=== PATIENT | female | born 1975 | race Caucasian/White ===

== ENCOUNTER → 2016-06-02 | Outpatient (REF) ==
[2016-06-02 14:18] LABS: TOTAL IRON BINDING CAPACITY 402 ug/dL (265-497)
[2016-06-02 14:45] LABS: FERRITIN 4 ng/mL (6-137)
== END ==
LOC: ZLAB.WCH 11:12
PROVIDERS: Nurse Practitioner Family
DX: Z01.89 Encounter for other specified special examinations (principal)

== ENCOUNTER → 2018-04-02 | Outpatient (REF) ==
[2018-04-02 09:12] LABS: IRON,SERUM 14 ug/dL (35-150)
[2018-04-02 09:21] LABS: TOTAL IRON BINDING CAPACITY 442 ug/dL (265-497)
[2018-04-02 09:47] LABS: FERRITIN 5 ng/mL (6-137)
== END ==
LOC: ZLAB.WCH 08:57
PROVIDERS: Family Medicine
DX: Z01.89 Encounter for other specified special examinations (principal)

== ENCOUNTER 2018-05-09 05:37 | Day surgery (SDC) | payer OTHER ==
[2018-05-09] VITALS (11 sets, daily range): BP systolic 103–134; BP diastolic 64–73; PULSE 58–83; TEMP 97.4–98.5
[~2018-05-09] VITALS: Ht 172.7 cm; Wt 66.8 kg
[2018-05-09] MEDS ORDERED: XANAX 0.5MG0.5 MG PO (06:32)
[2018-05-09] MEDS ORDERED: 00186-0370-20 IH (06:34)
[2018-05-09] MEDS ORDERED: VENTOLIN0.09 MG IH (06:35)
[2018-05-09] MEDS ORDERED: PRENATAL FORMU1 EAC3 PO (06:37)
[2018-05-09] MEDS ORDERED: COLACE 100100 MG/CAP PO (06:37)
[2018-05-09] MEDS ORDERED: VITAMIN C500 MG PO (06:38)
[2018-05-09] MEDS ORDERED: FERROUS SU325 MG/TAB PO (06:39)
[2018-05-09] MEDS ORDERED: MIRALAX PA17 GM/Dose PO (06:40)
[2018-05-09] MEDS ORDERED: MAXALT10 MG PO (06:41)
[2018-05-10] MEDS ORDERED: PERCOCET 325 MG1 TA2 PO (07:22)
[2018-05-10] MEDS ORDERED: MOTRIN 800800 MG/TAB PO (07:22)
[2018-05-10 07:30] VITALS: BP 121/64; PULSE 72; TEMP 98.4
== END 2018-05-10 12:00 | disposition home or self-care (01) ==
LOC: SDCO 05:37 → OB 05:37 → SDCO 07:30 → OB 10:00 → SDCO 05-10 12:00
DX: D25.9 Leiomyoma of uterus, unspecified (principal); N92.0 Excessive and frequent menstruation with regular cycle; N94.6 Dysmenorrhea, unspecified; N39.3 Stress incontinence (female) (male); N81.4 Uterovaginal prolapse, unspecified; J45.909 Unspecified asthma, uncomplicated; F41.9 Anxiety disorder, unspecified; D64.9 Anemia, unspecified; Z88.5 Allergy status to narcotic agent; Z88.8 Allergy status to other drugs, medicaments and biological substances; Z82.49 Family history of ischemic heart disease and other diseases of the circulatory system; Z80.52 Family history of malignant neoplasm of bladder; Z83.3 Family history of diabetes mellitus; Z80.42 Family history of malignant neoplasm of prostate
CPT/HCPCS: A4314; C1771; J0690; J1100; J1200; J1885; J2175; J2405; J2550; J2704; J3010; J7120

== ENCOUNTER 2024-04-04 06:39 | Inpatient (IN) | payer OTHER ==
[2024-04-04] VITALS (12 sets, daily range): BP systolic 113–133; BP diastolic 62–85; PULSE 71–106; TEMP 98–98.1
[~2024-04-04] VITALS: Ht 170.2 cm; Wt 83.8 kg
[~2024-04-04 06:39] MED LIST: 00186-0370-20 IH; COLACE 100100 MG/CAP PO; FERROUS SU325 MG/TAB PO; MAXALT10 MG PO; MIRALAX PA17 GM/Dose PO; MOTRIN 800800 MG/TAB PO; PERCOCET 325 MG1 TA2 PO; PRENATAL FORMU1 EAC3 PO; VENTOLIN0.09 MG IH; VITAMIN C500 MG PO; XANAX 0.5MG0.5 MG PO
[2024-04-04] MEDS ORDERED: BUSPAR5 MG PO (10:21)
[2024-04-04] MEDS ORDERED: ATARAX 25MG25 MG/TAB PO (10:22)
[2024-04-04] MEDS ORDERED: Docusate Sodium 100 MG CAP PO PRN (10:30)
[2024-04-04] MEDS ORDERED: Acetaminophen 325 MG TAB PO PRN (10:30)
[2024-04-04] MEDS ORDERED: Polyethylene Glycol 3350 17 GM PDS PO PRN (10:30)
[2024-04-04] MEDS ORDERED: hydrOXYzine HCl 25 MG TAB PO PRN (10:45)
--- NOTE | 2024-04-04 11:55 | NUR ---
SANKET met with patient, her daughter and daughter's boyfriend in room to complete initial assessment for discharge planning. Patient verified that she lives in [place] with her fiance. Patient lists her mother Maryann Ruiz ([phone]) as her emergency contact. Patient sees Alia Mack APRN as her PCP and uses [facility] without difficulty. Patient has [id number] insurance. Patient denies having a DPOA and states her only DME is a nebulizer. Patient plans to return home at discharge. Discharge plan: Home
[2024-04-04] MEDS ORDERED: Levalbuterol Neb Soln 1.25 MG/3 ML UD IH SCH (14:00)
[2024-04-04] MEDS ORDERED: Heparin 5,000 UNITS/ML 1 ML VIAL SQ SCH (16:00)
--- NOTE | 2024-04-04 17:54 | NUR ---
PT ARRIVED VIA EMS FROM [facility] AT 0910. UPON ARRIVAL PT WAS NOTED TO BE IN SINUS RHYTHM, EKG OBTAINED TO CONFIRM, DR LEIGH AND DR Ioana MOSER NOTIFIED. CARDIZEM DRIP DISCONTINUED AT [address] LEIGH. ECHO DONE AT 1315. LOOP RECORDER PLACED AT 1430, CONCRETE FOREMAN NURSE ASSISTED AT BEDSIDE, PT TOLERATED WELL. DRESSING TO IMPLANTATION SITE CDI. PT REMAINS IN NSR AT TIME OF THIS NOTE, PT DENIES NEEDS, CALL LIGHT IN REACH.
[2024-04-04] MEDS ORDERED: Budesonide Neb Susp 0.5 MG/2 ML AMP IH SCH (19:00)
--- NOTE | 2024-04-04 19:40 | NUR ---
Received report from SIL Mcrae. Pt alert and lying in bed with bed in low position and the call light within reach. Vitals are stable at this time. No IVF's or drips are running at this time. Pt does not look in distress at this time. Will continue with pt care.
--- NOTE | 2024-04-04 19:45 | NUR ---
Pt's loop recorder site looks clean, dry and intact with no hematomas present.
[2024-04-04] MEDS ORDERED: Ondansetron 4 MG/2 ML VIAL IV PRN (20:00)
[2024-04-04] MEDS ORDERED: Montelukast 10 MG TAB PO SCH (21:00)
[2024-04-04] MEDS ORDERED: Cephalexin 500 MG CAP PO SCH (21:00)
[2024-04-05] VITALS (8 sets, daily range): BP systolic 104–124; BP diastolic 65–80; PULSE 57–98; TEMP 97.3–98.5
[2024-04-05 05:10] LABS: BASO % 0.2 % (0.0-2.0); EOS % 0.1 % (0.0-4.0); GRAN # 8.5 K/mm3 (1.4-6.5); GRAN % 73.6 % (42.2-75.2); HEMATOCRIT 38.4 % (37.0-47.0); HEMOGLOBIN 13.4 g/dl (12.5-16.0); LYMPH % 17.4 % (20.0-51.0); MEAN CELL VOLUME 87 fl (80.0-100.0); MEAN CORPUSCULAR HEMOGLOBIN 30 pg (27-31); MEAN CORPUSCULAR HGB CONC 35 g/dl (33.0-37.0); MEAN PLATELET VOLUME 9.6 fl (7.4-10.4); MONO % 8.4 % (1.7-9.3); PLATELET COUNT 297 K/mm3 (130-400); RED BLOOD COUNT 4.43 M/mm3 (4.10-5.30); REDCELL DISTRIBUTION WIDTH-CV 12.6 % (11.5-14.5)
[2024-04-05 05:34] LABS: CALCIUM 9.5 mg/dL (8.4-10.2); CREATININE, serum 0.73 mg/dL (0.57-1.11); POTASSIUM 3.8 mEq/L (3.5-4.5)
--- NOTE | 2024-04-05 06:45 | NUR ---
Pt had an uneventful night. No drips or IVF's running at this time. Vitals are stable at this time. Pt is resting in bed with the call light within reach. Will give report to day shift nurse.
--- NOTE | 2024-04-05 08:30 | NUR ---
Awake and resting in bed; reports some soreness around loop recorder insertion site and a headache. Otherwise denies any complaints or concerns at this time. Assisted up to the bathroom and ambulates independently without any issues. Call light left within reach.
[2024-04-05] MEDS ORDERED: Influenza Virus Vaccine, Trivalent '24-25 0.5 ML SYRINGE IM SCH (09:00)
--- NOTE | 2024-04-05 09:47 | NUR ---
Notified by x ray service technician that patient's heart rate was suddenly very tachy. HR running 170's-180' on the monitor. Patient awake and alert but tearfull at this time. Stated that she could feel that her heart rate was elevatd but denied any other associated symptoms. BP and 02 readings stable. Had patient attempt to perform a valsalva manouver, howerver this was inneffective. Cardiology notified and was prepared to adminiser adenosine when patient re-converted to Sinus rhythm. Will switch to oral sotalol at this time. .
--- NOTE | 2024-04-05 14:45 | NUR ---
Patient transfered to medical floor via wheelchair. Alert and oriented and in no distress. Met receiving RN in room upon arrival.
--- NOTE | 2024-04-05 14:54 | NUR ---
PATIENT ARRIVED AWAKE AND ALERT FROM ICU. PATIENT LOOP RECORDER SITE CLEAN DRY AND INTACT. PATIENT DENIES ANY PAIN OR COMPLAINTS AT THIS TIME. PATIENT REQUESTING TO SHOWER. PATIENT IV COVERED. SHE WAS GIVEN INSTRUCTIONS FOR SHOWERING POST LOOP RECORDER INSERTION (PLACED YESTERDAY). PATPIENT SET UP FOR SHOWER.
[2024-04-05] MEDS ORDERED: diphenhydrAMINE 25 MG CAP PO PRN (20:30)
[2024-04-06] VITALS (12 sets, daily range): BP systolic 106–126; BP diastolic 70–78; PULSE 54–68; TEMP 98–98.9
--- NOTE | 2024-04-06 06:20 | NUR ---
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 pt COMPLAINED OF ITCHING AROUND HER SURGICAL SITE. PAPER TAPE REMOVED. AREA AROUND GAUZE (1/4IN OUT) CLEANED WITH ALCOHOL PAD TO REMOVE SOME OF THE PREP. HOSPITALIST CALLED. BENADRYL ORDERED AND GIVEN. pt FELT THE BENADRYL WAS MOSTLY EFFECTIVE. pt DENIED GENERAL PAIN, CHEST PAIN, PALPITATIONS, SOB, N,V,D OR DIZZINESS. CALL LIGHT WITHIN REACH.
[2024-04-06 06:26] LABS: BASO # 0.1 K/mm3 (0.0-0.2); BASO % 0.5 % (0.0-2.0); EOS # 0.1 K/mm3 (0.0-0.7); GRAN # 4.6 K/mm3 (1.4-6.5); GRAN % 50.4 % (42.2-75.2); HEMATOCRIT 40.1 % (37.0-47.0); HEMOGLOBIN 14.1 g/dl (12.5-16.0); LYMPH # 3.7 K/mm3 (1.2-3.4); MEAN CELL VOLUME 88 fl (80.0-100.0); MEAN CORPUSCULAR HEMOGLOBIN 31 pg (27-31); MEAN CORPUSCULAR HGB CONC 35 g/dl (33.0-37.0); MEAN PLATELET VOLUME 9.6 fl (7.4-10.4); MONO # 0.7 K/mm3 (0.1-0.6); MONO % 7.8 % (1.7-9.3); PLATELET COUNT 286 K/mm3 (130-400); RED BLOOD COUNT 4.57 M/mm3 (4.10-5.30); REDCELL DISTRIBUTION WIDTH-CV 12.6 % (11.5-14.5)
[2024-04-06 06:36] LABS: CALCIUM 8.8 mg/dL (8.4-10.2); CREATININE, serum 0.75 mg/dL (0.57-1.11)
[2024-04-06] MEDS ORDERED: busPIRone 5 MG TAB PO SCH (09:46)
--- NOTE | 2024-04-06 10:59 | NUR ---
dining service worker met with patient and provided [employer] packet as patient is having concerns that she has been off work for an extended period of time.
--- NOTE | 2024-04-06 12:10 | NUR ---
Data: Spiritual care visit offered during Plan Examiner rounds. Patient declined. She was in recliner reading a book. Assessment: None at this time. Plan of Care: Chaplains will remain available as needed/requested while Patient is admitted to this hospital.
--- NOTE | 2024-04-06 17:30 | NUR ---
PATIENT SHOWERED INDEPENDENTLY. NO ACUTE EVENTS DURING THIS RN SHIFT. PATIENT NOW AWAKE AND ALERT SITTING UP IN BED. CALL LIGHT WTIHIN REACH, LOOP RECORDER SITE DAVID WITH STERI STRIPS INTACT, FOUR H CLUB AGENT ON. PTIENT DENEIS ANY NEEDS OR COMPLAINTS AT THIS TIME.
[2024-04-07 00:05] VITALS: BP_SYST 125
[2024-04-07 03:29] VITALS: BP 116/69; PULSE 80; TEMP 98.3
[2024-04-07 04:00] VITALS: BP_SYST 116
--- NOTE | 2024-04-07 05:15 | NUR ---
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 pt COMPLAINED OF FEELING "FLUTTERS" IN HER CHEST. I CALLED THE TELE SITTER TO SEE HE COULD LOOK BACK AT HER EKG STRIP TO SEE IF HE COULD SEE ANYTHING OUT OF THE ORGINARY. TELE SITTER STATED WHEN HE LOOKED BACK, THE EKG SHOWED A COUPLE OF UNIFOCAL PVC'S BACK TO BACK. HOSPITALIST CALLED. NO NEW ORDERS GIVEN, BUT TO CONTINUE TO MONITOR. TELE ALSO CALLED ABOUT pt's HR DROPPING INTO THE HIGH 30'S FOR AROUND 30 SEC. pt ASYMPTOMATIC (JUST SLEEPING). HOSPITALIST CALLED. WILL CONTINUE TO MONITOR pt. pt ALSO COMPLAINED OF ANXIETY. pt GIVEN PRN ATARX FOR HER ANXIETY. pt FELT THE MEDICATION WAS EFFECTIVE. pt DENIED CHEST PAIN, PALPITIONS, SOB, N,V,D OR DIZZINESS. pt EXPESSED NO ADDITIONAL NEEDS AT THIS TIME. CALL LIGHT WITHIN REACH.
[2024-04-07 07:22] VITALS: BP 122/76; PULSE 52; TEMP 97.3
[2024-04-07 07:35] VITALS: BP_SYST 122
--- NOTE | 2024-04-07 08:05 | NUR ---
Patient sitting up in bed, A&Ox4. VSS. HR bradycardic, patient not symptomatic. IV CDI. Denies pain and discomfort. Call light within reach
[2024-04-07] MEDS ORDERED: CEPHALEXIN500 M1 PO (10:31)
[2024-04-07] MEDS ORDERED: XOPENEX 1.1.25 MG/3 IH (10:32)
[2024-04-07] MEDS ORDERED: BETAPACE 120MG120 MG PO (10:33)
[2024-04-07] MEDS ORDERED: ASPIRIN 81M81 MG/TA2 PO (10:34)
[2024-04-07] MEDS ORDERED: XOPENEX HF0.045 MG/A IH (11:09)
--- NOTE | 2024-04-07 11:15 | NUR ---
Discharge paperwork reviewed with the patient. PAtient verbalized an understanding to follow doctors orders. IV removed, tip intact. Gauze and coban applied. Patient waitiing on ride. No further needs expressed. Call light within reach
--- NOTE | 2024-04-07 11:51 | NUR ---
Patient ambulated independently with to awaiting vehicle. No further needs expressed
== END 2024-04-07 11:52 | disposition home or self-care (01) | DRG 261 ==
LOC: IMCU 06:39 → ICU 09:08 → MEDICAL 04-05 15:38
PROVIDERS: ADMIT Internal Medicine
PROC: 0JH632Z Insertion of Monitoring Device into Chest Subcutaneous Tissue and Fascia, Percutaneous Approach (ICD-10-PCS; principal; 2024-04-04)
DX: I48.91 Unspecified atrial fibrillation (principal); E87.20 Acidosis, unspecified; E87.6 Hypokalemia; F41.9 Anxiety disorder, unspecified; J45.909 Unspecified asthma, uncomplicated
CPT/HCPCS: C1764; G0378; G0379; J0780; J1644